=== PATIENT | female | born 1970 | race Caucasian/White ===

== ENCOUNTER 2020-02-10 16:06 | Emergency (ER) | payer OTHER, SELFPAY ==
[2020-02-10 17:01] VITALS: BP 142/82; PULSE 75; RESP 18; TEMP 36.7; O2SAT 96
--- NOTE | 2020-02-10 18:50 | ED.GENADULT ---
HPI - General Adult General Chief complaint: Recheck/Abnormal Lab/Rx Stated complaint: needs xanax refill Time Seen by Provider: 02/10/20 17:56 Source: patient Mode of arrival: ambulatory Limitations: no limitations History of Present Illness HPI narrative: Patient is a 49-year-old female who presents requesting Xanax noting that she ran out of it in the last couple of days saw primary care today who is a new primary care doctor. Patient notes the new primary care would not fill the medication for 1 month patient presents asking and request for refill of the medication has no other complaints other than feeling anxious patient notes that she has her other medications Related Data Home Medications Medication Instructions Recorded Confirmed alprazolam 02/10/20 amphetamine sulfate 02/10/20 diphenoxylate-atropine tablet 02/10/20 ibuprofen 02/10/20 lisinopril 02/10/20 metformin mg 02/10/20 omeprazole 02/10/20 triamcinolone acetonide applic TOPICAL 02/10/20 Allergies Allergy/AdvReac Type Severity Reaction Status Date / Time No Known Allergies Allergy Mild Verified 02/10/20 17:58 Review of Systems Review of Systems: All systems reviewed & are unremarkable except as noted in HPI and below PMFSH Family History Family History (Updated 12/23/17 @ 14:58 by DOCTOR UNKNOWN) Mother Patient's mother is , Onset Age: 59 Cerebrovascular accident Family history of diabetes mellitus in first degree relative Other Family history of cardiovascular disease Hypertension Social History Social History Smoking status: Heavy tobacco smoker Alcohol intake: never Exam Narrative: Exam Narrative: GENERAL: Well-appearing, well-nourished, and in no acute distress. HEAD: Normocephalic, atraumatic. EYES: PERRLA and EOMI. ENT: Nares clear, no rhinorrhea or epistaxis. Mucous membranes moist. CHEST: Clear to auscultation. No respiratory distress. No wheezes rales or rhonchi HEART: Regular rate and rhythm. No murmur heard. EXTREMITIES: Normal range of motion. No edema. SKIN: Warm, dry, no rash. NEURO: No focal deficits. Alert and oriented x3. Cranial nerves II through XII grossly intact. Normal speech and gait PSYCH: Normal mood and affect. Course Course Emergency Course: Patient in the room in no distress advised to follow with primary care for refill of her medication as planned patient walked out at this time prior to receiving her discharge instructions Vital Signs Vital signs: Vital Signs Temperature 98.1 F 02/10/20 17:01 Pulse Rate 75 02/10/20 17:01 Respiratory Rate 18 02/10/20 17:01 Blood Pressure 142/82 H 02/10/20 17:01 Pulse Oximetry 96 02/10/20 17:01 Temperature 98.1 F 02/10/20 17:01 Pulse Rate 75 02/10/20 17:01 Respiratory Rate 18 02/10/20 17:01 Blood Pressure 142/82 H 02/10/20 17:01 Pulse Oximetry 96 02/10/20 17:01 Medical Decision Making MDM Narrative Medical decision making narrative: Patient with request for medication refill advised to continue to follow with primary care and to have her medications filled Vital Signs Vital Signs: Vital Signs Temperature 98.1 F 02/10/20 17:01 Pulse Rate 75 02/10/20 17:01 Respiratory Rate 18 02/10/20 17:01 Blood Pressure 142/82 H 02/10/20 17:01 Pulse Oximetry 96 02/10/20 17:01 Temperature 98.1 F 02/10/20 17:01 Pulse Rate 75 02/10/20 17:01 Respiratory Rate 18 02/10/20 17:01 Blood Pressure 142/82 H 02/10/20 17:01 Pulse Oximetry 96 02/10/20 17:01 Discharge Plan Discharge Clinical Impression: Encounter for medication refill Patient Disposition: Home, Self-Care Condition: Stable Instructions: Antibiotic Form, Medicine Refill (ED) Additional Instructions: Follow up with your primary care doctor in 5-7 days for re-evaluation. Go to ER for worsening pain, vision changes, nausea/vomiting, fever/chills,
== END 2020-02-10 18:35 | disposition home or self-care (01) ==
PROVIDERS: Emergency Provider Emergency Medicine; PCP Nurse Practitioner
DX: F41.9 Anxiety disorder, unspecified (principal); E11.9 Type 2 diabetes mellitus without complications; K21.9 Gastro-esophageal reflux disease without esophagitis; Z79.84 Long term (current) use of oral hypoglycemic drugs
CPT/HCPCS: 99281

== ENCOUNTER 2020-03-12 11:29 | Outpatient (CLI) | payer OTHER, SELFPAY ==
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
== END 2020-03-12 11:30 | disposition home or self-care (01) ==
PROVIDERS: PCP Nurse Practitioner; Visit Provider Nurse Practitioner
DX: S62.614A Displaced fracture of proximal phalanx of right ring finger, initial encounter for closed fracture (principal); X58.XXXA Exposure to other specified factors, initial encounter
CPT/HCPCS: 73130

== ENCOUNTER → 2020-09-14 09:00 | Outpatient (CLI) | payer OTHER, SELFPAY ==
[2020-09-17 12:07] LABS: SARS-CoV-2 RNA PCR Negative
== END ==
PROVIDERS: PCP Nurse Practitioner; Visit Provider Family Medicine
DX: R68.89 Other general symptoms and signs (principal); Z20.822 Contact with and (suspected) exposure to COVID-19
CPT/HCPCS: C9803; U0003; U0005

== ENCOUNTER → 2020-11-13 09:43 | Outpatient (CLI) | payer OTHER, SELFPAY ==
[2020-11-13 17:39] LABS: SARS-CoV-2 RNA PCR Negative
== END ==
PROVIDERS: PCP Family Medicine; Visit Provider Family Medicine
DX: R68.89 Other general symptoms and signs (principal); Z20.822 Contact with and (suspected) exposure to COVID-19
CPT/HCPCS: C9803; U0003; U0005

== ENCOUNTER 2021-01-07 23:27 | Emergency (ER) | payer OTHER, SELFPAY ==
--- NOTE | ~2021-01-07 | XR_ITS ---
XR hip RT 2V w AP pelvis DATE: 01/08/2021 01:54 INDICATION: Posterior lateral right hip pain following a fall 2 days ago TECHNIQUE: AP pelvis. AP and lateral views of right hip COMPARISON: 01/08/2021 CT abdomen pelvis lumbar examination FINDINGS: There is contrast material within the collecting systems of both kidneys, ureters as well a s urinary bladder, without hydronephrosis. The pubic symphysis and sacroiliac joints are intact. No pelvic fracture or bone destruction. Hip luca nt spaces are symmetric and appear well preserved. No fracture, dislocation, avascular necrosis or bone destruction of the right hip is detected. IMPRESSION: No pelvic or right hip fracture or dislocation is detected Reviewed, dictated and finalized at location A.
--- NOTE | ~2021-01-07 | CT_ITS ---
EXAMINATION: CT abd pelvis lumbar w con DATE: 01/08/2021 01:42 INDICATION: Right flank injury and pain. TECHNIQUE: Computed tomography (CT) of the abdomen and pelvis and lumbar spine was performed with 100 mL Omnipaque 350 intravenous contrast. Automated exposure control and iterative reconstruction techn ique were employed. The dose-length product was 1179.60 mGy-cm. COMPARISON: None FINDINGS: CT ABDOMEN AND PELVIS: The visualized portions of the lung bases demonstrate mild atelectasis. No ple ural effusion. The heart size is normal. No pericardial effusion. There is a small sliding hiatal her jens. There is fluid in the esophagus. The liver, spleen, gallbladder, pancreas, and left adrenal glan d are normal. There is a 1.7 cm mass of right adrenal gland measuring soft tissue attenuation with ca lcifications. The kidneys are normal. There are no dilated loops of bowel. The appendix is normal. Th ere is a 12.5 x 9.0 cm multiloculated cystic mass with areas of soft tissue attenuation involving lef t ovary. There are no pathologically enlarged lymph nodes. There is no free intraperitoneal fluid. Th ere is an old healed fracture right eighth rib. CT LUMBAR SPINE: There are fractures of right L1 and L2 transverse processes. Bone alignment is le l. There are Schmorl's nodes at multiple levels. Intervertebral disc heights are normal.The following disc levels are specifically discussed: L1-L2: The disc is bulging. There is mild bilateral facet joint osteoarthritis. There is mild bilater al neural foraminal stenosis. There is mild central canal stenosis. L2-L3: The disc does not extend beyond the endplate margin. There is mild bilateral facet joint osteo arthritis. There is no neural foraminal stenosis. There is no central canal stenosis. L3-L4: The disc is bulging. There is mild bilateral facet joint osteoarthritis. There is no neural fo raminal stenosis. There is mild central canal stenosis. L4-L5: The disc is bulging. There is severe right and mild left facet joint osteoarthritis. There is moderate right and mild left neural foraminal stenosis. There is mild central canal stenosis. L5-S1: The disc does not extend beyond the endplate margin. There is mild bilateral facet joint osteo arthritis. There is no neural foraminal stenosis. There is no central canal stenosis. IMPRESSION: 1. Acute fractures of right L1 and L2 transverse processes. 2. 12.5 cm left ovarian mass suspicious for neoplasm. I discussed this finding with Dr. Campbell on at 10:37 AM. 3. 1.7 cm right adrenal mass. In the absence of malignancy with propensity for adrenal spread, this f inding is likely an adenoma. Reviewed, dictated and finalized at location A. IMPRESSION: 1. Acute fractures of right L1 and L2 transverse processes. 2. 12.5 cm left ovarian mass suspicious for neoplasm. I discussed this finding with Dr. Campbell on 01/08/21 at 10:37 AM. 3. 1.7 cm right adrenal mass. In the absence of malignancy with propensity for adrenal spread, this finding is likely an adenoma.
[2021-01-07 23:34] VITALS: BP 135/79; PULSE 86; RESP 20; TEMP 36.8; O2SAT 99
--- NOTE | 2021-01-08 00:18 | ED.LOWEXIN ---
HPI - Extremity Injury (Lower) General Chief Complaint: Extremity Injury, Lower Stated Complaint: Fall, hip pain Time Seen by Provider: 01/08/21 00:17 Source: patient and family Mode of arrival: ambulatory Limitations: no limitations History of Present Illness HPI Narrative: Patient is a 50 yo female presenting for evaluation of of right hip pain. Patient slipped on wet floor, landing on right hip two days ago. Patient with pain and popping sensation in that hip since that time. Patient has been ambulatory. Today, patient with bruising noticed to the right flank. Patient also with edema of right lower extremity. No calf pain or redness. No head trauma or LOC. No fever, chills, chest pain or dyspnea. No numbness or weakness. Pt is not on any anticoagulation. Also reporting right sided lower back pain. Related Data Home Medications Medication Instructions Recorded Confirmed alprazolam 02/10/20 amphetamine sulfate 02/10/20 diphenoxylate-atropine tablet 02/10/20 ibuprofen 02/10/20 lisinopril 02/10/20 metformin mg 02/10/20 omeprazole 02/10/20 triamcinolone acetonide applic TOPICAL 02/10/20 Allergies Allergy/AdvReac Type Severity Reaction Status Date / Time No Known Allergies Allergy Mild Verified 01/08/21 00:03 Review of Systems Review of Systems: CONSTITUTIONAL: Denies fever, chills, or sweats. EYES: Denies visual changes, redness, or discharge. ENT: Denies rhinorrhea, congestion, sore throat, or otalgia. CARDIOVASCULAR: Denies chest pain, palpitations, reports right lower extremity edema RESPIRATORY: Denies cough or dyspnea. GASTROINTESTINAL: Denies abdominal pain, nausea, vomiting, or diarrhea. GENITOURINARY: Denies dysuria or hematuria. SKIN: Denies rash or itching. MUSCULOSKELETAL: reports right lower back pain, right hip pain NEUROLOGIC: Denies headache, numbness, or weakness. Psych: History of anxiety and PTSD [facility] Family History Family History Mother Patient's mother is , Onset Age: 59 Cerebrovascular accident Family history of diabetes mellitus in first degree relative Other Family history of cardiovascular disease Hypertension Social History Social History Smoking status: Heavy tobacco smoker Alcohol intake: never Exam Narrative: GENERAL: Awake, alert, conversant, no acute distress HEAD: Normocephalic, atraumatic. EYES: PERRLA and EOMI. ENT: Nares clear, no rhinorrhea or epistaxis. Mucous membranes moist. NECK: Supple. CHEST: No respiratory distress, breathing even and non labored HEART: Regular rate, sinus rhythm ABDOMEN:Non distended, non tender Thorax: 15 cm ecchymoses to right flank/right lumbar paraspinal area, tender, no midline tenderness, patient with sacral midline tenderness EXTREMITIES: Normal range of motion. No edema. 5/5 strength RLE. No limb length discrepancy. Intact distal pulses. Intact distal sensation. 2+ edema to distal lower extremity. SKIN: Warm, dry, no rash. NEURO:No focal deficits. Alert and oriented x3. Course Vital Signs Vital signs: Vital Signs Temperature 36.8 C 01/07/21 23:34 Pulse Rate 86 01/07/21 23:34 Respiratory Rate 20 01/07/21 23:34 Blood Pressure 135/79 01/07/21 23:34 Pulse Oximetry 99 01/07/21 23:34 Temperature 36.8 C 01/07/21 23:34 Pulse Rate 80 01/08/21 01:21 Respiratory Rate 14 01/08/21 01:21 Blood Pressure 123/81 01/08/21 01:21 Pulse Oximetry 97 01/08/21 01:21 MDM - Extremity Injury (Lower) MDM Narrative Medical decision making narrative: Patient presenting with right-sided hip pain, right back pain following a fall. At the time of assessment, patient is neurologically intact. No limb length discrepancy. No pain with internal or external rotation of the right hip. Pelvis is stable to anterior lateral compression. Exam notable for right flank ecchymosis. Wanted to ob
[2021-01-08 01:21] VITALS: BP 123/81; PULSE 80; RESP 14; O2SAT 97
[2021-01-08] MEDS: ONDANSETRON INJ 4 MG/2 ML VIAL IV PUSH (01:21)
[2021-01-08] MEDS: MORPHINE SULFATE (*CRX) 4 MG/ML INJ IV PUSH (01:21)
--- NOTE | 2021-01-08 01:23 | PC.NURSE ---
Pt to CT scan via stretcher at this time.
[2021-01-08 01:40] LABS: Estimated CRCL calculation 54 ml/min; Estimated Glomerular Filt Rate 52
[2021-01-08 02:42] VITALS: BP 145/86; PULSE 75; RESP 15; O2SAT 99
[2021-01-08] MEDS: oxyCODONE/ACETAMINOPHEN (*CRX) 5-325 MG TABLET 1 TABLET PO (02:55)
== END 2021-01-08 03:00 | disposition home or self-care (01) ==
PROVIDERS: Emergency Provider Emergency Medicine; PCP Family Medicine
DX: S32.018A Other fracture of first lumbar vertebra, initial encounter for closed fracture (principal); S32.028A Other fracture of second lumbar vertebra, initial encounter for closed fracture; Z79.84 Long term (current) use of oral hypoglycemic drugs; F17.200 Nicotine dependence, unspecified, uncomplicated; N83.8 Other noninflammatory disorders of ovary, fallopian tube and broad ligament; E27.8 Other specified disorders of adrenal gland; W01.0XXA Fall on same level from slipping, tripping and stumbling without subsequent striking against object, initial encounter
CPT/HCPCS: 72132; 73502; 74177; 96374; 96375; 99284; A9270; J2270; J2405; Q9967

== ENCOUNTER 2021-05-11 18:17 | Emergency (ER) | payer OTHER, SELFPAY ==
--- NOTE | ~2021-05-11 | XR_ITS ---
EXAMINATION: [id number] EXAM DATE: 05/11/2021 18:48 INDICATION: Initial encounter following injury, with pain of the right ribs. Fell 2 days ago. TECHNIQUE: Frontal projection of the upper right ribs, frontal projection of the lower right ribs, ob lique projection of the right ribs, frontal chest x-ray(s) for interpretation. There is no prior yrn dy for comparison. FINDINGS: There are no displaced acute right rib fractures identified. There is no soft tissue abno rmality seen. Consider educating patient that even if there is a radiographically occult nondisplaced rib fracture, there is no specific treatment other than to refrain from activity that prevents heali ng. No confluent consolidation, pneumothorax or pleural effusion suspected. IMPRESSION: No displaced right rib fractures. Reviewed, dictated and finalized at location . 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
[2021-05-11 18:25] VITALS: BP 164/80; PULSE 95; RESP 18; TEMP 36.3; O2SAT 98
--- NOTE | 2021-05-11 18:44 | ED.FALL ---
HPI - Fall General Chief Complaint: Fall Stated Complaint: fall, rib pain Time Seen by Provider: 05/11/21 18:43 Source: patient Mode of arrival: ambulatory Limitations: no limitations History of Present Illness HPI Narrative: Patient is a 50-year-old female complaining of right lateral rib pain, 4 out of 10, sharp, nonradiating, worse with palpation, movement and deep breaths after she slipped on an icy pavement and fell 2 days ago landing on her right side. Patient denies any head, neck, back, abdomen, pelvis or any extremity pain/injury. Patient was able to stand up and ambulate after the fall. Patient asymptomatic prior to the fall. Related Data Home Medications Medication Instructions Recorded Confirmed alprazolam 02/10/20 amphetamine sulfate 02/10/20 diphenoxylate-atropine tablet 02/10/20 ibuprofen 02/10/20 lisinopril 02/10/20 metformin mg 02/10/20 omeprazole 02/10/20 triamcinolone acetonide applic TOPICAL 02/10/20 Allergies Allergy/AdvReac Type Severity Reaction Status Date / Time No Known Allergies Allergy Mild Verified 05/11/21 18:45 Review of Systems Review of Systems: See HPI All systems reviewed & are unremarkable except as noted in HPI and below PMFSH Family History Family History Mother Patient's mother is , Onset Age: 59 Cerebrovascular accident Family history of diabetes mellitus in first degree relative Other Family history of cardiovascular disease Hypertension Social History Social History Smoking status: Heavy tobacco smoker Alcohol intake: never Comments Past medical history:, Diabetes Exam Const: General: cooperative, healthy appearing, comfortable, no acute distress, well developed, alert and awake; No confusion Orientation/consciousness: oriented to person, oriented to place, oriented to time, patient oriented x3 and No confusion Limitations: no limitations HENMT: Head: normal to inspection, normocephalic and atraumatic Ears: hearing grossly normal bilaterally, TM normal on the right and TM normal on the left General nose exam: Normal external nose present, Normal nares present and No nasal discharge present Face and sinus: normal facial exam Mouth: Yes Normal oral and palatal mucosa present, Yes lip normal, Yes tongue normal and Yes oropharynx normal Throat: posterior oropharynx normal, tonsils normal and uvula midline Eyes: General: appearance normal, both eyes and all related structures Pupils: Equal, round and reactive pupils present EOM: EOMs intact bilaterally Neck: Neck: normal visual inspection, full ROM, no lymphadenopathy and no meningeal signs Chest: Other: Tenderness on palpation right lower lateral rib, at the level of 8 and 9 Resp: Effort & Inspection: normal respiratory effort, able to speak in complete sentences, no respiratory distress and not tachypneic Auscultation: clear to auscultation bilaterally, no crackles, no rales, no rhonchi and no wheezes Cardio: Rate: regular rate Rhythm: regular rhythm GI: Inspection: normal to inspection GI Palp: No abdominal tenderness, Yes Soft to palpation, No Tenderness to palpation present (GI), No Guarding due to palpation present (GI), No Rigid due to palpation and No Rebound tenderness present Auscultation: normal bowel sounds : General: Yes no CVA tenderness Back/Spine/Pelvis: Back: no CVA tenderness Skin: General skin exam: normal color, no rashes or lesions noted, elasticity normal and turgor normal Neuro: General: oriented to person, oriented to place, oriented to time, patient oriented x3, tone normal, moves all extremities, Normal light touch and pain sensation, no meningeal signs, no focal motor deficits, CN's II-XI intact bilaterally and No confusion Cranial nerves: Yes Equal, round and reactive pupils present Speech: No Abnormal speech present Sensory Exam: No
--- NOTE | 2021-05-11 19:00 | PC.NURSE ---
Assuming care of pt.
[2021-05-11] MEDS: KETOROLAC 30 MG/ML VIAL (*BKC) IM (19:23)
[2021-05-11] MEDS: TETANUS,DIPHTHERIA,AC PERTUSSIS ADULT (0.5 ML) BOOSTRIX IM (19:23)
[2021-05-11 19:51] VITALS: BP 144/96; PULSE 76; RESP 18; O2SAT 100
== END 2021-05-11 19:52 | disposition home or self-care (01) ==
PROVIDERS: Emergency Provider Emergency Medicine; PCP Family Medicine
DX: S20.211A Contusion of right front wall of thorax, initial encounter (principal); Z79.84 Long term (current) use of oral hypoglycemic drugs; F17.200 Nicotine dependence, unspecified, uncomplicated; Z23 Encounter for immunization; W00.0XXA Fall on same level due to ice and snow, initial encounter
CPT/HCPCS: 71101; 90471; 90715; 96372; 99283; J1885

== ENCOUNTER 2021-08-21 07:20 | Outpatient (CLI) | payer OTHER, SELFPAY ==
[2021-08-21 08:16] LABS: Basophils Absolute Auto 0.1 K/mm3 (0.0-0.1); Basophils Percent Auto 0.8 % (0.2-1.2); Eosinophils Absolute Auto 0.3 K/mm3 (0-0.3); Eosinophils Percent Auto 4.3 % (0-4.4); Hematocrit 43.6 % (37.0-47.0); Immature Granulocyte Absolute 0.01 K/mm3 (0.00-0.031); Immature Granulocyte Percent A 0.1 % (0-0.5); Lymphocytes Absolute Auto 2.52 K/mm3 (0.9-3.2); Mean Corpuscular HGB Conc 32.1 g/dl (32-36); Mean Corpuscular Hemoglobin 28.2 pg (26-34); Mean Corpuscular Volume 87.9 fl (80-100); Monocytes Absolute Auto 0.6 K/mm3 (0.1-0.6); Monocytes Percent Auto 8.8 % (2.6-8.5); Neutrophils Absolute Auto 3.7 K/mm3 (1.3-6.7); Platelet Count Result 376 k/mm3 (150-375); Red Blood Count 4.96 M/mm3 (4.2-5.4); Red Cell Distribution Width 13.9 % (11.5-14.5); White Blood Count 7.2 K/mm3 (4.5-10.0)
[2021-08-21 08:57] LABS: Alanine Aminotransferase 21 U/L (6-35); Albumin Level 3.8 g/dL (3.5-5.1); Alkaline Phosphatase 81 U/L (38-126); Anion Gap 5 mmol/L (8-16); Aspartate Amino Transferase 26 U/L (14-36); Bilirubin,Total 0.2 mg/dL (0.2-1.3); Blood Urea Nitrogen 15 mg/dL (7-17); Calcium 8.6 mg/dL (8.4-10.2); Carbon Dioxide 30 mmol/L (22-30); Chloride 103 mmol/L (98-107); Cholesterol 193 mg/dL (0-200); Estimated Glomerular Filt Rate > 60; Glucose 159 mg/dL (65-110); HDL Direct 31 mg/dL; Potassium 4.6 mmol/L (3.4-5.0); Sodium 138 mmol/L (137-145); Triglycerides 164 mg/dL (<150)
[2021-08-21 08:57] LABS: Hemoglobin A1C 6.9 % (<5.7)
[2021-08-21 09:07] LABS: LDL Cholesterol Direct 128 mg/dL
[2021-08-21 09:15] LABS: Free T4 Free Thyroxine 0.92 ng/mL (0.78-2.19); Vitamin D 25 Hydroxy 40.5 ng/mL
[2021-08-21 09:25] LABS: Total Triiodothyronine (T3) 1.26 NG/ML (0.97-1.69)
== END 2021-08-21 07:21 | disposition home or self-care (01) ==
LOC: ANHLAB 07:22
PROVIDERS: PCP Family Medicine; Visit Provider Family Medicine
DX: E55.9 Vitamin D deficiency, unspecified (principal); E11.9 Type 2 diabetes mellitus without complications; I10 Essential (primary) hypertension
CPT/HCPCS: 36415; 80053; 80061; 82306; 83036; 84439; 84443; 84480; 85025

== ENCOUNTER 2021-11-27 13:42 | Outpatient (CLI) | payer OTHER, SELFPAY ==
--- NOTE | ~2021-11-27 | US_ITS ---
EXAMINATION: US pelvic complete DATE: 11/27/2021 15:21 INDICATION: LEFT ADNEXAL MASS TECHNIQUE: Multiple transabdominal and endovaginal sonographic images of the pelvis were obtained. COMPARISON: CT abdomen and pelvis 01/08/2021 anterolisthesis Impression. FINDINGS: Uterus: 5.4 x 2.8 x 3.4 cm. Endometrial complex not well visualized Right Ovary: 2.6 x 1.9 x 1.8 cm. Vascular flow is present. 0.9 cm simple right ovarian cyst. Left Ovary: Cystic ovarian/adnexal structure measuring 9.7 x 7.6 x 8.4 cm which prevents definitive i dentification of ovarian tissue or vascular flow. The left adnexal mass is multiloculated. Soft tissu e attenuation nodularity seen in the prior study is not well demonstrated sonographically. There is no free fluid in the pelvis. IMPRESSION: 1. 9.7 cm left adnexal/ovarian mass, recommend gynecology referral for possible excision. 2. Left ovarian tissue not visualized and vascular flow not confirmed. Reviewed, dictated and finalized at location K. Impression. FINDINGS: Uterus: 5.4 x 2.8 x 3.4 cm. Endometrial complex not well visualized Right Ovary: 2.6 x 1.9 x 1.8 cm. Vascular flow is present. 0.9 cm simple right ovarian cyst. Left Ovary: Cystic ovarian/adnexal structure measuring 9.7 x 7.6 x 8.4 cm which prevents definitive identification of ovarian tissue or vascular flow. The lef t adnexal mass is multiloculated. Soft tissue attenuation nodularity seen in th e prior study is not well demonstrated sonographically. There is no free fluid in the pelvis.
== END 2021-11-27 13:43 | disposition home or self-care (01) ==
PROVIDERS: PCP Family Medicine; Visit Provider Nurse Practitioner Adult Health
DX: N83.202 Unspecified ovarian cyst, left side (principal)
CPT/HCPCS: 76856

== ENCOUNTER 2022-04-25 00:43 | Emergency (ER) | payer OTHER, SELFPAY ==
--- NOTE | ~2022-04-25 | CT_ITS ---
Noncontrast CT scan of the cervical spine Technique: Multiple contiguous axial [address] images of the cervical spine were obtained and rec onstructed in 2D sagittal and coronal planes on the acquisition scanner. Dose reduction technique was used on this scan by utilizing automated exposure control, adjustment of the mA and/or kV according to patient size. Clinical History: Pain Findings: No fractures or dislocations. Straightening of the normal cervical lordosis is noted. The intervertebral disc spaces are preserved. No prevertebral soft tissue swelling. Impression: No fracture or subluxation of the cervical spine. Straightening of the normal cervical lordosis. Reviewed, dictated and finalized at location M. Y VENDOR Impression: No fracture or subluxation of the cervical spine. Straightening of the normal cervical lordosis.
[2022-04-25 00:46] VITALS: BP 150/70; PULSE 62; RESP 20; TEMP 36.8; O2SAT 98
[2022-04-25 01:19] VITALS: BP 157/95; PULSE 79; RESP 16; TEMP 36.1; O2SAT 98
--- NOTE | 2022-04-25 01:22 | PC.NURSE ---
pt fell apr 01- did not get evaluated. Since, she has had intense pain and tingling with numbness in left hand. She also describes that she also feels air bubbles popping when she moves neck.
--- NOTE | 2022-04-25 01:49 | ED.GENADULT ---
HPI - General Adult General Chief complaint: Neck Pain/Injury Stated complaint: fall, neck pain Time Seen by Provider: 04/25/22 01:24 History of Present Illness HPI narrative: Patient a 51-year-old female that presents the emergency department with chief complaint of neck pain. 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 So allowed herself to count of heel patient reports that she has been getting a little better and then now is off of the pain medications and lifted something and felt a pop in her neck. The patient reports that she has pain on the left side of her neck and along the midportion of her neck she does report that occasionally she gets some tingling along her third fourth and fifth digits. 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 Related Data Home Medications Medication Instructions Recorded Confirmed alprazolam 2 mg tablet 02/10/20 amphetamine sulfate 02/10/20 diphenoxylate-atropine 2.5 tablet 02/10/20 mg-0.025 mg tablet ibuprofen 800 mg tablet 02/10/20 lisinopril 20 mg tablet 02/10/20 metformin 500 mg tablet mg 02/10/20 omeprazole 20 mg capsule,delayed 02/10/20 release triamcinolone acetonide 0.1 % applic topical 02/10/20 topical cream Allergies Allergy/AdvReac Type Severity Reaction Status Date / Time No Known Allergies Allergy Mild Verified 05/11/21 18:45 Review of Systems Review of Systems: A 10 system review of systems was completed on the patient and is negative except for what is stated in the HPI. Nursing and ancillary documentation was reviewed. [facility] Family History Family History Mother Patient's mother is , Onset Age: 59 Cerebrovascular accident Family history of diabetes mellitus in first degree relative Other Family history of cardiovascular disease Hypertension Social History Social History Smoking status: Heavy tobacco smoker Alcohol intake: never Exam Narrative: GENERAL: Well-appearing, well-nourished, and in no acute distress. HEAD: Normocephalic, atraumatic. EYES: PERRLA and EOMI. ENT: Nares clear, no rhinorrhea or epistaxis. Mucous membranes moist. NECK: Supple. Tenderness to palpation the paraspinous muscles of the left side of the neck there is also midline C-spine tenderness diffusely throughout the cervical spine CHEST: Clear to auscultation. No respiratory distress. HEART: Regular rate and rhythm. No murmur heard. Normal peripheral pulses. ABDOMEN: Soft, nontender, nondistended, normal active bowel sounds. EXTREMITIES: Normal range of motion. No edema. SKIN: Warm, dry, no rash. NEURO: No focal deficits. Alert and oriented x3. PSYCH: Normal mood and affect. Course Vital Signs Vital signs: Vital Signs Temperature 36.8 C 04/25/22 00:46 Pulse Rate 62 04/25/22 00:46 Respiratory Rate 20 04/25/22 00:46 Blood Pressure 150/70 H 04/25/22 00:46 Pulse Oximetry 98 04/25/22 00:46 Oxygen Delivery Room Air 04/25/22 00:46 Temperature 36.1 C L 04/25/22 01:19 Pulse Rate 79 04/25/22 01:19 Respiratory Rate 16 04/25/22 01:19 Blood Pressure 157/95 H 04/25/22 01:19 Pulse Oximetry 98 04/25/22 01:19 Oxygen Delivery Room Air 04/25/22 00:46 Medical Decision Making MDM Narrative Medical decision making narrative: Patient is currently not showing any focal neurological deficit the injuries were in the last couple of weeks. Given the patient is continuing to have pain imaging will be obtained CT cervical spine was ordered and results were reviewed reports showed no evidence of fracture Patient will be started on anti-
[2022-04-25] MEDS: IBUPROFEN 400 MG TABLET 800 MG PO (03:35)
[2022-04-25] MEDS: CYCLOBENZAPRINE HCL 10 MG TABLET PO (03:37)
[2022-04-25 04:00] VITALS: BP 147/90; PULSE 70; RESP 16; TEMP 36.2; O2SAT 100
== END 2022-04-25 04:02 | disposition home or self-care (01) ==
PROVIDERS: Emergency Provider Emergency Medicine; PCP Family Medicine
DX: S16.1XXA Strain of muscle, fascia and tendon at neck level, initial encounter (principal); Z79.84 Long term (current) use of oral hypoglycemic drugs; F17.200 Nicotine dependence, unspecified, uncomplicated; W01.198A Fall on same level from slipping, tripping and stumbling with subsequent striking against other object, initial encounter
CPT/HCPCS: 72125; 99284; A9270

== ENCOUNTER 2023-08-05 18:45 | Emergency (ER) | payer OTHER, SELFPAY ==
[2023-08-05 18:52] VITALS: BP 152/83; PULSE 113; RESP 32; TEMP 36.8; O2SAT 100
--- NOTE | 2023-08-05 19:21 | PC.NURSE ---
upon entering pt room pt was getting dressed and states I gotta go to the store and get some tylenol This RN asked pt if she would like to be seen by our provider and pt stated I'll wait 5 more minutes about 1 minute later the pt ambulated out of the ED and stated to Joshua RN I am going to get tylenol
== END 2023-08-05 20:08 | disposition left against medical advice (07) ==
PROVIDERS: Emergency Provider Emergency Medicine; PCP Family Medicine
DX: M54.9 Dorsalgia, unspecified (principal)
CPT/HCPCS: 99199

== ENCOUNTER 2023-10-26 20:12 | Inpatient (IN) | payer OTHER, SELFPAY ==
--- NOTE | ~2023-10-26 | XR_ITS ---
EXAM: XR abdomen/kub 1V DATE: 10/27/2023 22:16 HISTORY: intractable vomiting, abdominal pain . COMPARISON: None available. FINDINGS: Clear lung bases. Normal bowel gas pattern. No organomegaly. No abnormal abdominal calcifi cation. Mild lower lumbar degenerative disease. Mild bilateral hip osteoarthritis. IMPRESSION: No radiographic evidence of obstruction or ileus. Reviewed, dictated and finalized at location K.
--- NOTE | ~2023-10-26 | CT_ITS ---
EXAMINATION: CT abdomen pelvis w con DATE: 10/26/2023 23:38 INDICATION: abdominal pain, vomiting TECHNIQUE: Computed tomography (CT) of the abdomen and pelvis was performed with 100 mL Omnipaque-350 intravenous contrast. Automated exposure control and iterative reconstruction technique were employe d. The dose-length product was 556.69 mGy-cm. COMPARISON: 01/08/2021. FINDINGS: Lower thorax: Unremarkable Liver: Normal. Biliary/Gallbladder: Gallbladder is normal. No bile duct dilation. Pancreas: No mass or duct dilation. Spleen: Normal. Adrenals: Stable right adrenal mass, likely adenoma. Kidneys: No suspicious mass, obstructing stone, or hydronephrosis. GI tract: Small hiatal hernia. Mild antral wall edema. Marked wall edema involving the terminal ileum , with adjacent mesenteric stranding and right lower quadrant lymphadenopathy. No small or large angelica l dilation. Normal appendix. Diverticulosis without diverticulitis. Mesentery/Peritoneum: No mass or free air. Retroperitoneum: No mass. Pelvis: Moderate volume free pelvic fluid, 20 HU, at the upper limit 4 simple fluid. Normal bladder a nd uterus. Ovaries not confidently identified. Soft Tissues: Soft tissues and body wall unremarkable. Bones: No acute osseous finding. IMPRESSION: Mild antral gastritis. Severe terminal ileitis, with adjacent mesenteric edema, right lower quadrant lymphadenopathy, and mo derate volume, presumably reactive free pelvic fluid. No free air to suggest bowel rupture. Reviewed, dictated and finalized at location K. IMPRESSION: Mild antral gastritis. Severe terminal ileitis, with adjacent mesenteric edema, right lower quadrant l ymphadenopathy, and moderate volume, presumably reactive free pelvic fluid. No free air to suggest bowel rupture.
[2023-10-26 20:22] VITALS: BP 146/87; PULSE 109; RESP 18; TEMP 36.3; O2SAT 98
[2023-10-26 22:27] VITALS: BP 122/76; PULSE 103; RESP 19; O2SAT 97
[2023-10-26 22:35] LABS: Basophils Absolute Auto 0.1 K/mm3 (0.0-0.1); Basophils Percent Auto 0.4 % (0.2-1.2); Eosinophils Absolute Auto 0.1 K/mm3 (0-0.3); Eosinophils Percent Auto 0.7 % (0-4.4); Hematocrit 34.5 % (37.0-47.0); Hemoglobin 9.9 g/dL (12.0-15.0); Immature Granulocyte Percent A 0.5 % (0-0.5); Lymphocytes Absolute Auto 2.75 K/mm3 (0.9-3.2); Mean Corpuscular HGB Conc 28.7 g/dl (32-36); Mean Corpuscular Volume 69.7 fl (80-100); Mean Platelet Volume 8.8 fl (7.4-10.4); Monocytes Percent Auto 4.8 % (2.6-8.5); Neutrophils Absolute Auto 17.1 K/mm3 (1.3-6.7); Neutrophils Percent Auto 80.6 % (45.5-73.1); Platelet Count Result 559 k/mm3 (150-375); Red Blood Count 4.95 M/mm3 (4.2-5.4); Red Cell Distribution Width 18.1 % (11.5-14.5); White Blood Count 21.2 K/mm3 (4.5-10.0)
[2023-10-26 22:45] LABS: Alanine Aminotransferase 12 U/L (6-35); Albumin Level 3.6 g/dL (3.5-5.1); Alkaline Phosphatase 72 U/L (38-126); Anion Gap 9 mmol/L (4-12); Aspartate Amino Transferase 26 U/L (14-36); Bilirubin,Total 0.4 mg/dL (0.2-1.3); Blood Urea Nitrogen 24 mg/dL (7-17); Calcium 8.3 mg/dL (8.4-10.2); Carbon Dioxide 25 mmol/L (22-30); Chloride 96 mmol/L (98-107); Estimated CRCL calculation 65 ml/min; Estimated Glomerular Filt Rate > 60; Glucose 211 mg/dL (65-110); Lipase 54 U/L (23-300); Potassium 3.8 mmol/L (3.4-5.0); Sodium 130 mmol/L (137-145)
[2023-10-26 22:56] LABS: Hypochromasia 2+; Ovalocytes 1+; Platelet Estimate Increased (Adequate); Schistocytes None Seen; Stomatocytes 1+
--- NOTE | 2023-10-26 23:17 | ED.ABDPAIN ---
HPI - Abdominal Pain General Chief Complaint: Abdominal Pain Stated Complaint: abdominal pain Time Seen by Provider: 10/26/23 22:50 Source: patient Mode of arrival: ambulatory Limitations: no limitations History of Present Illness HPI narrative: This is a 52-year-old female that presents to the emergency department for crampy abdominal pain. Associated with nausea and vomiting. Ongoing over the last 4 days. Reports a couple of months prior she had a prolonged hospitalization for colitis and aspiration pneumonia. Denies fever, diarrhea, dysuria. Related Data Home Medications Medication Instructions Recorded Confirmed alprazolam 2 mg tablet 02/10/20 amphetamine sulfate 02/10/20 diphenoxylate-atropine 2.5 tablet 02/10/20 mg-0.025 mg tablet ibuprofen 800 mg tablet 02/10/20 lisinopril 20 mg tablet 02/10/20 metformin 500 mg tablet mg 02/10/20 omeprazole 20 mg capsule,delayed 02/10/20 release triamcinolone acetonide 0.1 % applic topical 02/10/20 topical cream Allergies Allergy/AdvReac Type Severity Reaction Status Date / Time No Known Allergies Allergy Mild Verified 05/11/21 18:45 Review of Systems Review of Systems: CONSTITUTIONAL: Denies fever GASTROINTESTINAL: Reports abdominal pain, nausea, vomiting. Denies diarrhea. GENITOURINARY: Denies dysuria or hematuria. All systems reviewed & are unremarkable except as noted in HPI and below PMFSH Past Medical History Medical History (Updated 10/27/23 @ 02:11 by Shanta Lopez PA-C) Anxiety Hypertension PTSD (post-traumatic stress disorder) Family History Family History Mother Patient's mother is , Onset Age: 59 Cerebrovascular accident Family history of diabetes mellitus in first degree relative Other Family history of cardiovascular disease Hypertension Social History Social History Smoking status: Heavy tobacco smoker Alcohol intake: never Exam Narrative: GENERAL: Well-appearing, well-nourished, and in no acute distress. HEAD: Normocephalic, atraumatic. EYES: EOMI. CHEST: Clear to auscultation. No respiratory distress. No wheezes rales or rhonchi HEART: Regular rate and rhythm. No murmur heard. Normal peripheral pulses. ABDOMEN: Soft, nondistended, normal active bowel sounds. Tender to palpation in the epigastrium, without guarding EXTREMITIES: Normal range of motion. No edema. SKIN: Warm, dry, no rash. NEURO: No focal deficits. Alert and oriented x3. PSYCH: Normal mood and affect Course Course Emergency Course: Patient updated on her workup and recommendation for admission Consultations Consultation #1: Spoke with GI who will consult. Agrees with Claudia Date: 10/27/23 Consultation #2: Spoke with hospitalist about patient and workup who accepts admission Date: 10/27/23 Vital Signs Vital signs: Vital Signs Temperature 97.3 F L 10/26/23 20:22 Pulse Rate 109 H 10/26/23 20:22 Respiratory Rate 18 10/26/23 20:22 Blood Pressure 146/87 H 10/26/23 20:22 Pulse Oximetry 98 10/26/23 20:22 Oxygen Delivery Room Air 10/26/23 20:22 Temperature 97.3 F L 10/26/23 20:22 Pulse Rate 96 10/26/23 23:42 Respiratory Rate 18 10/26/23 23:42 Blood Pressure 134/86 10/26/23 23:42 Pulse Oximetry 100 10/26/23 23:42 Oxygen Delivery Room Air 10/26/23 20:22 MDM - Abdominal Pain MDM Narrative Medical decision making narrative: Patient presents to the emergency department for abdominal pain and vomiting. Ongoing over the last couple of days she is afebrile and nontoxic appearing. Mildly tachycardic upon arrival this normalized with IV fluids. CBC with leukocytosis to 21.2. Also shows microcytic anemia hemoglobin 9.9. Metabolic panel without concerning findings. Lipase is normal. Urine without evidence of infection. CT abdomen pelvis she has gastrit
[2023-10-26 23:21] LABS: Appearance Urine Clear (Clear); Bilirubin Urine Negative (Negative); Blood Urine Negative (Negative); Color Urine Yellow (Yellow); Glucose Urine UA 2+ mg/dL (Negative); Ketones Urine Negative (Negative); Leukocyte Esterase Ur Negative LEU/UL (Negative); Nitrate Urine Negative (Negative); Protein Urine Negative (Negative); Specific Grav Ur 1.015 (1.001-1.035); pH Urine 5.5 (5.0-9.0)
[2023-10-26 23:25] LABS: Add Urine Microscopic? YES
[2023-10-26 23:42] VITALS: BP 134/86; PULSE 96; RESP 18; O2SAT 100
[2023-10-26] MEDS: ONDANSETRON INJ 4 MG/2 ML VIAL IV PUSH (23:49)
[2023-10-26] MEDS: PANTOPRAZOLE SODIUM IV 40 MG VIAL IV PUSH (23:50)
[2023-10-26] MEDS: SODIUM CHLORIDE 0.9% IV 1,000 ML 999 ML IV CONT (23:50)
[2023-10-27 01:09] LABS: CRP 1.6 mg/dL (<1.0)
[2023-10-27 01:45] VITALS: BP 133/76; PULSE 96; RESP 17; O2SAT 100
--- NOTE | 2023-10-27 01:50 | PC.NURSE ---
2 techs and 1 RN unsuccessfully attempted to get blood cultures on pt. Phlebotomy called to obtain blood cultures.
[2023-10-27 02:04] LABS: Lactic Acid Reflex 1.6 mmol/L (0.7-2.0)
[2023-10-27] MEDS: ALPRAZolam (*CRX) 0.5 MG TABLET 2 MG PO (02:11)
--- NOTE | 2023-10-27 02:15 | PC.NURSE ---
Car Wash Attendant Automatic at bedside trying to obtain blood cultures. Report called to SHITAL Hawk. Pt to be taken to floor after.
[2023-10-27] MEDS: PIPERACILLN/TAZ 3.375GM/NS50ML 3.375 GM/50 ML BAG IVPB ×4 (02:30→21:12)
[2023-10-27] MEDS: APIXABAN 5 MG TABLET PO (03:15)
[2023-10-27] MEDS: SODIUM CHLORIDE 0.9% IV 1,000 ML 125 ML IV CONT ×3 (03:15→18:53)
--- NOTE | 2023-10-27 03:17 | ADMGEN ---
This patient, Alejandra Delgado, was admitted to [facility] Surg Room 301-01. Patient/family oriented to hospital policies and general routines including ID bracelet, bed and alarms, visiting hours, pain management, procedures, bathroom and other care routines, personal items, smoking policy, room service/diet, and visiting hours. Information on how to activate the Rapid Response Team has been discussed. Patient/Family are encouraged to report perceived risks to care and to ask questions if they do not understand what they are told or what they should do.
[2023-10-27 03:18] VITALS: BMI 30.2
[2023-10-27 05:31] VITALS: BP 108/56; PULSE 99; RESP 18; TEMP 36.3; O2SAT 98
[2023-10-27 07:31] LABS: Glucose Point of Care 129 mg/dl (65-105)
[2023-10-27 08:20] VITALS: O2SAT 95
--- NOTE | 2023-10-27 08:53 | P.CONGI_ITS ---
I, Jose G Mujica MD, have provided a substantive portion of the care of this patient and discussed the patient with my Nurse Practitioner. I have reviewed any new relevant radiographic and laboratory results including medications. I agree with her documentation as noted below.?I personally performed the medical decision making and much of the history and exam for this encounter. briefly, about 3 months ago was at another hospital with respiratory failure that required intubation and also colitis. She is here with worsening abdominal pain, nausea and diarrhea. CT scan showed ileitis, also leukocytosis. Plan is to get stool sample, iv abx and monitor. If no better then colonoscopy, never had one. Assessment and Plan Assessment and plan (1) Ileitis, terminal: Qualifiers: Digestive disease complication type: without complication Qualified Code(s): K50.00 - Crohn's disease of small intestine without complications Code(s): K50.00 - Crohn's disease of small intestine without complications Status: Acute (2) Constipation: Qualifiers: Constipation type: unspecified constipation type Qualified Code(s): K59.00 - Constipation, unspecified Code(s): K59.00 - Constipation, unspecified Status: Acute (3) Weight loss: Code(s): R63.4 - Abnormal weight loss Status: Acute (4) Leukocytosis: Qualifiers: Leukocytosis type: unspecified Qualified Code(s): D72.829 - Elevated white blood cell count, unspecified Code(s): D72.829 - Elevated white blood cell count, unspecified Status: Acute (5) Epigastric pain: Code(s): R10.13 - Epigastric pain Status: Acute (6) Gastritis: Qualifiers: Gastritis type: unspecified gastritis Chronicity: unspecified Gastritis bleeding: without bleeding Qualified Code(s): K29.70 - Gastritis, unspecified, without bleeding Code(s): K29.70 - Gastritis, unspecified, without bleeding Status: Acute (7) GERD (gastroesophageal reflux disease): Qualifiers: Esophagitis presence: esophagitis presence not specified Qualified Code(s): K21.9 - Gastro-esophageal reflux disease without esophagitis Code(s): K21.9 - Gastro-esophageal reflux disease without esophagitis Status: Acute (8) Nausea and vomiting: Qualifiers: Vomiting type: bilious vomiting Qualified Code(s): R11.14 - Bilious vomiting Code(s): R11.2 - Nausea with vomiting, unspecified Status: Acute (9) Microcytic anemia: Code(s): D50.9 - Iron deficiency anemia, unspecified Status: Acute Plan 1. Terminal ileitis/weight loss/constipation/ leukocytosis: Patient has never had a colonoscopy. Family history negative for CRC or IBD. CT shows severe terminal ileitis with adjacent mesenteric edema, right lower quadrant lymphadenopathy, and moderate volume reactive free pelvic fluid. CRP 1.6 and WBC's 21. Patient reports recent hospitalization at [facility] for pneumonia and colitis 90 days ago. Patient denies any recent lower abdominal pain. She states that her weight has went from 190 lb to 157 lb since her initial hospitalization at [facility]. She states she has only had 14-16 bowel movements over the past 90 days. Denies any straining with bowel movements but was unable to p rovide any further details regarding recent bowel habits. Denies hematochezia. No findings on imaging concerning for obstruction. Patient was advised to follow up with outpatient GI following her hospitalization for colonoscopy but due to insurance issues this was not done. DDX: Acute inflammatory/ infectious teri
--- NOTE | 2023-10-27 08:53 | WPDGICN ---
Assessment and Plan Assessment and plan (1) Ileitis, terminal: Qualifiers: Digestive disease complication type: without complication Qualified Code(s): K50.00 - Crohn's disease of small intestine without complications Code(s): K50.00 - Crohn's disease of small intestine without complications Status: Acute (2) Constipation: Qualifiers: Constipation type: unspecified constipation type Qualified Code(s): K59.00 - Constipation, unspecified Code(s): K59.00 - Constipation, unspecified Status: Acute (3) Weight loss: Code(s): R63.4 - Abnormal weight loss Status: Acute (4) Leukocytosis: Qualifiers: Leukocytosis type: unspecified Qualified Code(s): D72.829 - Elevated white blood cell count, unspecified Code(s): D72.829 - Elevated white blood cell count, unspecified Status: Acute (5) Epigastric pain: Code(s): R10.13 - Epigastric pain Status: Acute (6) Gastritis: Qualifiers: Gastritis type: unspecified gastritis Chronicity: unspecified Gastritis bleeding: without bleeding Qualified Code(s): K29.70 - Gastritis, unspecified, without bleeding Code(s): K29.70 - Gastritis, unspecified, without bleeding Status: Acute (7) GERD (gastroesophageal reflux disease): Qualifiers: Esophagitis presence: esophagitis presence not specified Qualified Code(s): K21.9 - Gastro-esophageal reflux disease without esophagitis Code(s): K21.9 - Gastro-esophageal reflux disease without esophagitis Status: Acute (8) Nausea and vomiting: Qualifiers: Vomiting type: bilious vomiting Qualified Code(s): R11.14 - Bilious vomiting Code(s): R11.2 - Nausea with vomiting, unspecified Status: Acute (9) Microcytic anemia: Code(s): D50.9 - Iron deficiency anemia, unspecified Status: Acute Plan 1. Terminal ileitis/weight loss/constipation/ leukocytosis: Patient has never had a colonoscopy. Family history negative for CRC or IBD. CT shows severe terminal ileitis with adjacent mesenteric edema, right lower quadrant lymphadenopathy, and moderate volume reactive free pelvic fluid. CRP 1.6 and WBC's 21. Patient reports recent hospitalization at [facility] for pneumonia and colitis 90 days ago. Patient denies any recent lower abdominal pain. She states that her weight has went from 190 lb to 157 lb since her initial hospitalization at [facility]. She states she has only had 14-16 bowel movements over the past 90 days. Denies any straining with bowel movements but was unable to provide any further details regarding recent bowel habits. Denies hematochezia. No findings on imaging concerning for obstruction. Patient was advised to follow up with outpatient GI following her hospitalization for colonoscopy but due to insurance issues this was not done. DDX: Acute inflammatory/ infectious etiology versus IBD Continue antibiotics Will arrange outpatient colonoscopy fecal calprotectin ordered for baseline If constipation persist start Miralax 2. Epigastric/Upper abdominal pain/Gastritis/GERD/nausea/vomiting: Patient has never had an EGD. CT shows mild antral gastritis. Patient reports epigastric/upper abdominal pain worsening with eating. This pain has been worse since last hospitalization but became more severe over the past 5 days. Patient is on omeprazole 40 mg daily outpatient which she states she has been taking for years. Admits to intermittent nausea and vomiting that normally occurs when she has episodes of crampy upper abdominal pain or when she tries to belch. Denies any nausea or vomiting since admission. She states that she tastes blood in her vomit but denies any coffee-ground emesis or he hematemesis. she denies any NSAID or aspirin use the but was recently started on Eliquis after being diagnosed with a DVT in her left leg during her recent hospitalization. Protonix 40 mg IV daily Con
[2023-10-27 10:39] LABS: Basophils Absolute Auto 0.1 K/mm3 (0.0-0.1); Basophils Percent Auto 0.8 % (0.2-1.2); Eosinophils Absolute Auto 0.2 K/mm3 (0-0.3); Eosinophils Percent Auto 2.7 % (0-4.4); Hematocrit 31.9 % (37.0-47.0); Immature Granulocyte Absolute 0.02 K/mm3 (0.00-0.031); Immature Granulocyte Percent A 0.2 % (0-0.5); Lymphocytes Absolute Auto 2.62 K/mm3 (0.9-3.2); Lymphocytes Percent Auto 30.4 % (18.3-44.2); Mean Corpuscular HGB Conc 28.2 g/dl (32-36); Mean Corpuscular Hemoglobin 19.8 pg (26-34); Mean Corpuscular Volume 70.1 fl (80-100); Mean Platelet Volume 8.8 fl (7.4-10.4); Monocytes Absolute Auto 0.6 K/mm3 (0.1-0.6); Monocytes Percent Auto 6.4 % (2.6-8.5); Neutrophils Absolute Auto 5.1 K/mm3 (1.3-6.7); Neutrophils Percent Auto 59.5 % (45.5-73.1); Platelet Count Result 540 k/mm3 (150-375); Red Blood Count 4.55 M/mm3 (4.2-5.4); Red Cell Distribution Width 18.1 % (11.5-14.5); White Blood Count 8.6 K/mm3 (4.5-10.0)
[2023-10-27 10:55] LABS: Anion Gap 8 mmol/L (4-12); Blood Urea Nitrogen 14 mg/dL (7-17); CRP 2.4 mg/dL (<1.0); Calcium 8.2 mg/dL (8.4-10.2); Carbon Dioxide 26 mmol/L (22-30); Chloride 104 mmol/L (98-107); Estimated CRCL calculation 67 ml/min; Estimated Glomerular Filt Rate > 60; Glucose 128 mg/dL (65-110); Hypochromasia 1+; Magnesium 1.7 mg/dL (1.6-2.3); Platelet Estimate Adequate (Adequate); Potassium 3.6 mmol/L (3.4-5.0); Sodium 138 mmol/L (137-145)
[2023-10-27 10:56] LABS: Anisocytosis 1+; Microcytosis 1+ (NORMAL); Schistocytes None Seen
[2023-10-27 11:09] LABS: Iron 22 ug/dL (37-170)
[2023-10-27 11:18] LABS: Percent Iron Saturation 7 % (20-50)
[2023-10-27 11:33] LABS: Glucose Point of Care 136 mg/dl (65-105)
[2023-10-27 11:45] LABS: Ferritin 5.94 ng/mL (11.1-264)
--- NOTE | 2023-10-27 12:56 | PM.IMHP ---
H&P: HPI History of Present Illness Date/Time: 10/27/23 12:56 Chief Complaint: Abdominal pain vomiting x5 Narrative: This is a pleasant 52-year-old female with a PMH hypertension, anxiety, PTSD, ADD, current smoker tobacco and marijuana, remote history of methamphetamine use, gastritis, [id number] diabetes mellitus, hospitalization at [facility] in 06/2023 with left lower extremity DVT, pneumonia with severe septic shock requiring 2 weeks of mechanical ventilator and colitis. The patient was discharged home around 07/20/23, she was advised to follow-up with a rubber extrusion machine operator but that doctor not in her network. Since then, she has had intermittent abdominal pain and only 14-16 bowel movements in the last 90 days. The pain is worse when she eats. She was 190 lb and is now 157 lb. She had 5 episodes of fluid colored emesis. She has had symptoms of heartburn and has been taking omeprazole. She presents to [place] ER on 10/25 with worsened abdominal pain. In the ER she was found to have a WBC count of 21.2, sodium 130, CRP 1.6, lipase 54, LFTs normal. CT abdomen pelvis without contrast demonstrated mild antral gastritis and severe terminal ileitis with adjacent mesenteric edema, right lower quadrant lymphadenopathy and moderate volume presumably reactive free pelvic fluid. No free air. Blood cultures were taken and she was administered Protonix, 1 L normal saline bolus, Zofran, Zosyn, Xanax 2 mg p.o. x1, Eliquis 5 mg p.o. x1. Subsequently admitted on 10/27/2023. Review of Systems Review of Systems: All systems reviewed & are unremarkable except as noted in HPI and below (Subjective) [facility] Past Medical History Medical History (Updated 10/27/23 @ 13:03 by Margarita Ferguson MD) Anxiety Diabetes Hypertension PTSD (post-traumatic stress disorder) Family History Family History Mother Patient's mother is , Onset Age: 59 Cerebrovascular accident Family history of diabetes mellitus in first degree relative Other Family history of cardiovascular disease Hypertension Social History Social History Years smoked: 30 Smoking status: Light tobacco smoker Alcohol intake: former Substance use: current Substance use type: marijuana and methamphetamine Other substance usage details: every 3 days marijuana use, stopped meth 15 years ago Last use: 10/26/23 Do You Feel Safe in your Home?: Yes Lack of Transportation: No Lack of Food: Never True Current Housing: I Have Housing Concerned About Future Housing: No Difficulty Paying Gas/Electric Bills: No Difficulty Paying for Meds: No Currently Unemployed: No Education: Trade/Vocational Certificate Difficulty w/ Childcare or Family Care: No Spiritual care concerns: No Meds Home Medications and Allergies Home Medications Medication Instructions Recorded Confirmed Type alprazolam 2 mg tablet 2 mg PO BID 02/10/20 10/27/23 History metformin 500 mg tablet 1,000 mg PO DAILY 02/10/20 10/27/23 History omeprazole 20 mg capsule,delayed 40 mg PO DAILY 02/10/20 10/27/23 History release triamcinolone acetonide 0.1 % 1 applic topical DAILY PRN Rash 02/10/20 10/27/23 History topical cream albuterol sulfate 90 mcg/actuation 2 inh inhalation Q4-6H PRN 10/27/23 10/27/23 History aerosol inhaler Shortness Of Breath apixaban 5 mg tablet (Eliquis) 5 mg PO BID 10/27/23 10/27/23 History aspirin 81 mg capsule 81 mg PO DAILY 10/27/23 10/27/23 History hydrochlorothiazide 12.5 mg tablet 12.5 mg PO DAILY 10/27/23 10/27/23 History losartan 100 mg tablet 100 mg PO DAILY 10/27/23 10/27/23 History Allergies Allergy/AdvReac Type Severity Reaction Status Date / Time fentanyl AdvReac Other Verified 10/27/23 03:41 Vital Signs Vital Signs - 24 hr 10/26/23 20:22 10/26/23 22:27 10/26/23 23:42 Temperature 97.3 F L Pulse Rate
[2023-10-27 13:02] VITALS: BMI 30.2
[2023-10-27 14:00] VITALS: BP 154/75; PULSE 81; RESP 16; TEMP 36.2; O2SAT 98
[2023-10-27 16:39] LABS: Glucose Point of Care 159 mg/dl (65-105)
[2023-10-27] MEDS: ALPRAZolam (*CRX) 0.5 MG TABLET 1 MG PO (17:01)
[2023-10-27] MEDS: polyethylene glycoL 3350 17 GM POWD.PACK PO (17:01)
[2023-10-27] MEDS: ONDANSETRON INJ 4 MG/2 ML VIAL IV PUSH (18:52)
[2023-10-27 19:29] LABS: Barbiturate Screen Urine Negative (Negative); Benzodiazepines Screen Urine Positive (Negative)
[2023-10-27 19:32] LABS: Cannabinoid Screen Urine Positive (Negative); Cocaine Screen Urine Negative (Negative); Methadone Screen Urine Negative (Negative); Opiate Screen Urine Negative (Negative); Phencyclidine Screen Urine Negative (Negative)
[2023-10-27 20:05] LABS: Amphetamine Screen Urine Positive (Negative)
[2023-10-27 21:23] LABS: Glucose Point of Care 160 mg/dl (65-105)
[2023-10-27 21:47] VITALS: BP 189/82; PULSE 106; RESP 20; TEMP 36.4; O2SAT 96
[2023-10-28] MEDS: PIPERACILLN/TAZ 3.375GM/NS50ML 3.375 GM/50 ML BAG IVPB ×3 (02:00→13:45)
[2023-10-28] MEDS: SODIUM CHLORIDE 0.9% IV 1,000 ML 125 ML IV CONT ×2 (03:30→11:30)
[2023-10-28 05:36] VITALS: BP 146/79; PULSE 95; RESP 18; TEMP 36.2; O2SAT 97
[2023-10-28 06:49] LABS: Hematocrit 31.3 % (37.0-47.0); Hemoglobin 8.9 g/dL (12.0-15.0); Mean Corpuscular HGB Conc 28.4 g/dl (32-36); Mean Corpuscular Volume 70.3 fl (80-100); Mean Platelet Volume 8.8 fl (7.4-10.4); Platelet Count Result 537 k/mm3 (150-375); Red Blood Count 4.45 M/mm3 (4.2-5.4); Red Cell Distribution Width 17.7 % (11.5-14.5)
[2023-10-28 07:16] LABS: Anion Gap 7 mmol/L (4-12); Blood Urea Nitrogen 8 mg/dL (7-17); Calcium 8.1 mg/dL (8.4-10.2); Carbon Dioxide 28 mmol/L (22-30); Chloride 103 mmol/L (98-107); Estimated CRCL calculation 76 ml/min; Estimated Glomerular Filt Rate > 60; Glucose 122 mg/dL (65-110); Magnesium 1.6 mg/dL (1.6-2.3); Sodium 138 mmol/L (137-145)
[2023-10-28 07:20] LABS: Glucose Point of Care 121 mg/dl (65-105)
[2023-10-28] MEDS: POTASSIUM CHLORIDE 20 MEQ ER TABLET 40 MEQ PO (09:08)
[2023-10-28] MEDS: FERROUS SULFATE 325 MG TABLET DR PO (09:08)
[2023-10-28] MEDS: ALPRAZolam (*CRX) 0.5 MG TABLET 1 MG PO (09:08)
[2023-10-28] MEDS: polyethylene glycoL 3350 17 GM POWD.PACK PO (09:08)
[2023-10-28] MEDS: PANTOPRAZOLE SODIUM IV 40 MG VIAL IV PUSH (09:11)
--- NOTE | 2023-10-28 10:32 | PC.NURSE ---
0200 dose of Zosyn manually entered by dayshift RN. Verified with nightshift RN Carine Ricky that the medication was given.
[2023-10-28 11:24] LABS: Glucose Point of Care 147 mg/dl (65-105)
[2023-10-28 14:00] VITALS: BP 148/87; PULSE 80; RESP 16; TEMP 36; O2SAT 100
[2023-10-28 14:47] LABS: Hepatitis B Surface Antigen Negative (Negative)
[2023-10-28 15:05] LABS: Hepatitis B Surface Anti Res Negative
--- NOTE | 2023-10-28 16:07 | WPDGIPROGNO ---
Progress Note: A&P Assessment and Plan (1) Ileitis, terminal: Qualifiers: Digestive disease complication type: without complication Qualified Code(s): K50.00 - Crohn's disease of small intestine without complications Code(s): K50.00 - Crohn's disease of small intestine without complications Status: Acute Assessment and Plan: clinically better complete course of abx po and then I will set up colonoscopy as outpatient (2) Nausea and vomiting: Qualifiers: Vomiting type: bilious vomiting Qualified Code(s): R11.14 - Bilious vomiting Code(s): R11.2 - Nausea with vomiting, unspecified Status: Acute Assessment and Plan: much better (3) Microcytic anemia: Code(s): D50.9 - Iron deficiency anemia, unspecified Status: Acute Assessment and Plan: colonoscopy and egd as outpatient (4) Abdominal pain: Code(s): R10.9 - Unspecified abdominal pain Status: Acute Subjective Date/time seen: 10/28/23 16:07 Interval history: nausea has improved, pain almost gone and tolerating diet, she would like to go home Review of Systems Review of Systems: All systems reviewed & are unremarkable except as noted in HPI and below Exam Const: General: comfortable and no acute distress Other: Obese, pleasant. HENMT: Face/Nose/Sinus: Normal nares present Eyes: Sclera: sclerae normal Neck: Neck: supple Resp: Effort & Inspection: normal respiratory effort Auscultation: clear to auscultation bilaterally Cardio: Rate: regular rate Rhythm: regular rhythm GI: GI Palp: Yes Soft to palpation and No Tenderness to palpation present (GI) Auscultation: normal bowel sounds Skin: General skin exam: normal color Neuro: Speech: normal speech Motor exam (neuro): 5/5 motor strength present throughout Extrem: General: no edema Psych: Affect: Anxious affect present Objective Data Vital Signs Vital Signs: Vital Signs - 24 hr 10/27/23 21:47 10/28/23 05:36 10/28/23 14:00 Temperature 97.6 F 97.2 F L 96.8 F L Pulse Rate 106 H 95 80 Respiratory Rate 20 18 16 Blood Pressure 189/82 H 146/79 H 148/87 H Pulse Oximetry 96 97 100 Intake/Output Intake/Output: Intake & Output 10/25/23 10/26/23 10/27/23 10/28/23 23:59 23:59 23:59 23:59 Intake Total 3380.4 2700 Output Total 1800 Balance 1580.4 2700 Meds/Results Medications: Active Medications Generic Name Dose Route Start Last Admin Trade Name Freq PRN Reason Stop Dose Admin Albuterol 2 puff 10/27/23 12:48 Albuterol Sulfate (*Sp) Aerosol 1 Puff INHALATION Q4-6H PRN Shortness Of Breath Alprazolam 1 mg 10/27/23 17:00 10/28/23 09:08 Alprazolam (*Crx) 0.5 Mg Tablet PO 1 mg BID EARLE Administration Dextrose 12.5 gm 10/27/23 12:54 Dextrose 50% 25 Gm/50 Ml Syringe IV PUSH PRN PRN Hypoglycemia Protocol Ferrous Sulfate 325 mg 10/28/23 09:00 10/28/23 09:08 Ferrous Sulfate [address] PO 325 mg DAILY EARLE Administration Glucagon 1 mg 10/27/23 12:54 Glucagon For Inj 1 Mg Vial IM PRN PRN Hypoglycemia Protocol Glucose 15 gm 10/27/23 12:54 Glucose Oral Gel 15 Gm Of Glucse In 37.5 Gm Tube PO PRN PRN Hypoglycemia Protocol Sodium Chloride 1,000 mls @ 125 mls/hr 10/27/23 01:35 10/28/23 11:30 Normal Saline Iv IV CONT 125 mls/hr .Q8H EARLE Administration Piperacillin/Tazobactam/Dextrose 3.375 gm in 50 mls @ 100 mls/hr 10/27/23 08:00 10/28/23 13:45 Zosyn 3.375 Gm/Ns 50 Ml IVPB 100 mls/hr Q6H EARLE Administration Dextrose 1,000 mls @ 100 mls/hr 10/27/23 12:54 Dextrose 5% 1,000 Ml IVPB PRN PRN Hypoglycemia Protocol Insulin Aspart 2 - 5 units 10/27/23 17:00 10/28/23 11:39 Insulin Aspart (*Bkc) 100 Units/Ml SUB-Q Not Given TIDWM EARLE Protocol Insulin Aspart 1 - 2 units 10/27/23 21:00 10/27/23 21:00 Insulin Aspart (*Bkc) 100 Un
--- NOTE | 2023-10-28 16:19 | PM.DS ---
DS: Admitting Diagnosis Discharge Date 10/28/2023 Admitting Diagnosis Abdominal pain DS: Discharge Diagnosis Discharge Diagnosis (1) Abdominal pain: Code(s): R10.9 - Unspecified abdominal pain Status: Acute (2) Microcytic anemia: Code(s): D50.9 - Iron deficiency anemia, unspecified Status: Acute DS: Summary Hospital Course Hospital Course: This is a pleasant 52-year-old female with a H hypertension, anxiety, PTSD, ADD, current smoker tobacco and marijuana, remote history of methamphetamine use, gastritis, [id number] diabetes mellitus, hospitalization at [facility] in 06/2023 with left lower extremity DVT, pneumonia with severe septic shock requiring 2 weeks of mechanical ventilator and colitis. The patient was discharged home around 07/20/23, she was advised to follow-up with a rag sorter but that doctor not in her network. Since then, she has had intermittent abdominal pain and only 14-16 bowel movements in the last 90 days. The pain is worse when she eats. She was 190 lb and is now 157 lb. She had 5 episodes of fluid colored emesis. She has had symptoms of heartburn and has been taking omeprazole. She presents to [facility] on 10/25 with worsened abdominal pain. In the ER she was found to have a WBC count of 21.2, sodium 130, CRP 1.6, lipase 54, LFTs normal. CT abdomen pelvis without contrast demonstrated mild antral gastritis and severe terminal ileitis with adjacent mesenteric edema, right lower quadrant lymphadenopathy and moderate volume presumably reactive free pelvic fluid. No free air. Blood cultures were taken and she was administered Protonix, 1 L normal saline bolus, Zofran, Zosyn, Xanax 2 mg p.o. x1, Eliquis 5 mg p.o. x1. Subsequently admitted on 10/27/2023. On 10/28/2023 she has received Zosyn for 3 days, Protonix 40 mg IV q.a.m., fluid resuscitation. She has felt much better and she has advanced her diet without any further nausea vomiting or abdominal pain. The patient would like to go home, feels it is safe to do so. She will be discharged on 4 more days of metronidazole and ciprofloxacin. Has been educated about the risk versus benefits of antibiotics and she agrees to take them. She will follow with Dr. Grimm for outpatient EGD and colonoscopy. Protonix prescribed on discharge. Her left lower extremity DVT which appears provoked has been treated for at least 3 months of anticoagulation therapy. Patient would like to stop anticoagulation now. She elects to follow-up with ultrasound if needed in the outpatient setting. She is also having progressive anemia in the past few years so would be prudent to stop anticoagulation. Advised to stop aspirin. As for the anemia she has iron deficiency. Started on ferrous sulfate. Follow-up in the outpatient setting for serial monitoring. The patient's urine drug screen resulted positive for amphetamines, benzodiazepines and marijuana. Of course, the benzodiazepines are expected as she has been prescribed Xanax by her PCP Dr. Campbell. [facility] reviewed and the last time she was prescribed amphetamine salts was in July of 2023. Patient reported she had not been taking amphetamines. She also reported not using any other illicit substances such as marijuana. When she received 2 mg of Xanax on admission she appeared very obtunded. This did eventually resolve. At any rate, educated the patient the detrimental effects of substance abuse. She did not want to discuss further. Advised to bring down her Xanax to 1 mg p.o. b.i.d. on discharge. Reached out to Dr. Campbell and notified him of this issue. He will follow up with her in the office. She is discharged in stable condition to home on 10/28/2023. Code Status: Patient wishes to be full code Functional status and anticipated needs: Independent at baseline, she is at baseline Medication reconciliation obtained via the following: Nurse completed on admission S
[2023-10-28 16:21] LABS: Glucose Point of Care 199 mg/dl (65-105)
[2023-10-29 12:03] LABS: Hepatitis B Core Ab Total REACTIVE (NON-REACTIVE)
== END 2023-10-28 17:44 | disposition home or self-care (01) | DRG 245 ==
LOC: ANHED 23:28 → ANH3MEDSUR 10-27 02:05
PROVIDERS: Internal Medicine Gastroenterology; Nurse Practitioner Family; Admitting Provider Internal Medicine; Emergency Provider Physician Assistant; PCP Family Medicine; Visit Provider General Practice
DX: K50.00 Crohn's disease of small intestine without complications (principal); I10 Essential (primary) hypertension; D50.9 Iron deficiency anemia, unspecified; K29.70 Gastritis, unspecified, without bleeding; K21.9 Gastro-esophageal reflux disease without esophagitis; K59.00 Constipation, unspecified; R63.4 Abnormal weight loss; F41.9 Anxiety disorder, unspecified; F12.90 Cannabis use, unspecified, uncomplicated; F43.10 Post-traumatic stress disorder, unspecified; F98.8 Other specified behavioral and emotional disorders with onset usually occurring in childhood and adolescence; Z79.01 Long term (current) use of anticoagulants; Z79.82 Long term (current) use of aspirin; Z86.718 Personal history of other venous thrombosis and embolism
CPT/HCPCS: 36415; 74018; 74177; 80048; 80053; 80307; 81001; 81025; 82728; 82948; 83036; 83540; 83550; 83605; 83690; 83735; 85025; 85027; 86140; 86704; 86706; 87040; 87340; 96361; 96365; 96366; 96367; 96374; 96375; 99285; A9270; G0378; J2405; J2470; J2543; J7030; Q9967